=== PATIENT | female | born 1995 | race African-American/Black ===

== ENCOUNTER 2017-03-18 11:01 | Observation (INO) | payer MEDICAID ==
[~2017-03-18] VITALS: Ht 162.6 cm; Wt 149.7 kg
[2017-03-18] MEDS ORDERED: PNV1TABL76 PO (12:07)
== END 2017-03-18 16:45 | disposition home or self-care (01) ==
LOC: L&D 11:01
PROVIDERS: ADMIT Obstetrics & Gynecology; ATTEND Obstetrics & Gynecology
DX: O62.9 Abnormality of forces of labor, unspecified (principal); O48.0 Post-term pregnancy; Z3A.40 40 weeks gestation of pregnancy
CPT/HCPCS: 99281; G0378